=== PATIENT | female | born 2000 | race Caucasian/White ===

== ENCOUNTER → 2021-01-21 00:01 | Outpatient (BNVA) | payer BC, SELFPAY | PROVIDERS: Family Provider Nurse Practitioner Family; PCP Nurse Practitioner Family; Visit Provider Nurse Practitioner Family | DX: Z3A.34 34 weeks gestation of pregnancy (principal); O99.893 Other specified diseases and conditions complicating puerperium; M54.9 Dorsalgia, unspecified | CPT/HCPCS: 81003; 87086 ==

== ENCOUNTER 2022-04-22 07:46 | Emergency (ER) | payer MEDICAID, SELFPAY ==
--- NOTE | 2022-04-22 07:51 | XR_ITS ---
WS: [id number] Exam: XR chest 1V portable [id number] Date/Time of Exam: 04/22/2022 7:53 AM Reason For Exam: dyspnea/cough Comparison 07/11/2018. Findings: The lungs are clear and fully expanded. Costophrenic angles are sharp. No infiltrates. Bronchovascula r relief appears normal. Cardiac silhouette is unremarkable. Bony elements are intact. XR/XR chest 1V portable [id number] IMPRESSION: Unremarkable chest radiograph.
[2022-04-22 07:56] VITALS: BP 146/80; PULSE 122; RESP 36; TEMP 36.7; O2SAT 93; BMI 35.5
--- NOTE | 2022-04-22 08:18 | ED_ITS ---
HPI - SOB/Dyspnea General: Chief Complaint: Shortness of Breath/Dyspnea Stated Complaint: asthma attack Time Seen by Provider: 04/22/22 07:51 Source: patient Mode of arrival: ambulatory Limitations: no limitations History of Present Illness: HPI Narrative: 22-year-old female presents emergency room with complaint of shortness of breath and wheezing. 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 Last few days she had problems with her asthma increasing use of her rescue nebulizer. She had good results but states she could tell in the medicine the effectiveness seems to wear off she denies any fever. Minimal cough of clear sputum. No chest pain no abdominal pain. Patient reports she checked her O2 sat and it was in the upper 80s MD elicited complaint: shortness of breath and cough Pertinent past history: asthma Onset (ago): day(s) Timing: intermittent and progressively worsening Severity: moderate Associated symptoms: Reports cough; Deny abdominal pain, chest congestion, chest pain, diaphoresis, dizziness, extremity pain, fever(s), hemoptysis, lightheadedness, myalgias, nausea, orthopnea, palpitations, paresthesias, polydipsia, polyuria, rash, sense of impending doom, syncope or vomiting Treatment prior to arrival: bronchodilator Review of Systems Const: Denies: fever(s), chills, fatigue, malaise or diaphoresis ENMT: Denies: throat pain, ear or mastoid pain, nasal discharge or nasal congestion Card: Denies: chest pain, palpitations, lightheadedness, syncope or orthopnea Resp: Reports: dyspnea, productive cough and wheezing; Denies: hemoptysis or chest congestion GI: Denies: abdominal pain, nausea or vomiting : Denies: flank pain, difficulty voiding, dysuria, urinary frequency or urinary urgency Musc: Denies: extremity pain Skin/Breast: Denies: rash or pruritus Neuro: Denies: dizziness Endo: Denies: polyuria or polydipsia PFSH ED PFSH: Medical History Asthma Social History Smoking and tobacco status: never smoked Female Reproductive History: Date of last menstrual period: 04/22/22 Physical Exam Const: COMMON NORMALS: no acute distress GENERAL APPEARANCE: cooperative and comfortable ORIENTATION/CONSCIOUSNESS: Yes awake, Yes oriented to person, Yes oriented to place and Yes oriented to time HENMT: COMMON NORMALS: normocephalic, atraumatic and hearing grossly normal bilaterally HEAD & SCALP: normocephalic and atraumatic Neck/C-Spine: COMMON NORMALS: no JVD Resp: COMMON NORMALS: normal respiratory effort, No retractions and No use of accessory muscles AUSCULTATION: wheezes Cardio: COMMON NORMALS: no JVD, regular rate, regular rhythm and No murmurs present (Cardio) RATE: regular rate RHYTHM: regular rhythm GI: COMMON NORMALS: Soft to palpation and No hepatosplenomegaly present AUSCULTATION: Yes normoactive bowel sounds PALPATION: Yes Soft to palpation, No Tenderness to palpation present (GI), No Guarding due to palpation present (GI) and Yes No hepatosplenomegaly present Extremity: COMMON NORMALS: normal to inspection, capillary refill normal, no clubbing, cyanosis or edema, no calf tenderness and no pedal edema Neuro: SENSORIUM/ORIENTATION: Yes oriented to person, Yes oriented to place and Yes oriented to time Skin: COMMON NORMALS: no rashes or lesions noted GENERAL SKIN EXAM: no rashes or lesions noted Course Vital Signs: Vital signs: Vital Signs Temperature 98.0 F 04/22/22 07:56 Pulse Rate 126 H 04/22/22 08:26 Respiratory Rate 26 H 04/22/22 08:26 Blood Pressure 146/80 04/22/22 07:56 Pulse Oximetry 96 04/22/22 08:26 MDM - SOB/Dyspnea Medical Decision Making Marked improvement of the patient's breathing wheezing is nearly completely resolved she is feeling much better sats are good. Will discharge home prednisone taper refill her albuterol for nebulizers. Follow-up with primary care doctor in the next 1 to 2 days fizzing worsening symptoms return to the emergency room Medical Records I reviewed the patient's medical records. Lab Data I reviewed the patient's lab results. Labs/Radiology: Radiology Impressions Chest X-Ray 04/22/22 07:51 IMPRESSION: Unremarkable chest radiograph. Discharge Plan Discharge Patient Disposition: Home Clinical Impression: Asthma with exacerbation Condition: Stable Prescriptions: New prednisone 20 mg tablet 20 mg PO TID Qty: 15 0RF Rx Instructions: 1 p.o. 3 times daily x3 days, 1 p.o. twice daily x2 days, 1 p.o. daily x2 days albuterol sulfate 2.5 mg /3 mL (0.083 %) solution for nebulization 2.5 mg inhalation Q4H PRN (Reason: shortness of breath or wheezing) Qty: 90 0RF No Action budesonide-formoterol 160-4.5 mcg/actuation HFA aerosol inhaler inhalation 0RF prednisone 20 mg tablet PO 0RF azithromycin 250 mg tablet PO 0RF ipratropium-albuterol 0.5 mg-3 mg(2.5 mg base)/3 mL solution for nebulization 3 ml inhalation BID 0RF sertraline 25 mg tablet PO 0RF fluticasone propionate 50 mcg/actuation spray,suspension intranasal 0RF montelukast [Singulair] 10 mg tablet 10 mg PO DAILY 0RF albuterol sulfate [ProAir HFA] 90 mcg/actuation HFA aerosol inhaler 2 puff inhalation Q6H PRN (Reason: shortness of breath or wheezing) 30 Days Qty: 8.5 2RF Spiriva Respimat 1.25 mcg/actuation mist 2 puff inhalation DAILY Qty: 4 3RF Discharge Orders: Discharge ED (Routine); Ordered 04/22/22 Ordered By: Drew Matson Discharge Diet: Usual diet Discharge Activity: Increase activity as tolerated Patient Instructions: Asthma Exacerbation - Adult, How to Use a Nebulizer (ED), Opioid Safety Activity Restrictions/Additional Instructions: Up with your primary care doctor within the next 1 to 2 days Coding Level of Care Code ED [employer] for [employer] F[employer] Exam Comprehensive
[2022-04-22] MEDS: ipratropium-albuterol 3 mL Neb INHALATION (08:25)
[2022-04-22 08:26] VITALS: PULSE 126; RESP 26; O2SAT 96
[2022-04-22 08:29] VITALS: BP 148/68; PULSE 89; RESP 22; TEMP 36.6; O2SAT 96
[2022-04-22 09:40] VITALS: BP 136/59; PULSE 81; RESP 18; TEMP 36.8; O2SAT 96
== END 2022-04-22 09:41 | disposition home or self-care (01) ==
PROVIDERS: Emergency Provider Family Medicine
DX: J45.901 Unspecified asthma with (acute) exacerbation (principal)
CPT/HCPCS: 71045; 94640; 99283; J2930

== ENCOUNTER 2023-09-09 22:17 | Inpatient (IN) | payer OTHER, MEDICAID, SELFPAY ==
[2023-09-09] VITALS (8 sets, daily range): BP systolic 141; BP diastolic 84; PULSE 118–126; RESP 15–38; TEMP 36.8; O2SAT 91–94; BMI 24.4
--- NOTE | 2023-09-09 22:22 | XRR_ITS ---
PROCEDURE INFORMATION: Exam: XR Chest Exam date and time: 09/09/2023 10:41 PM Age: 23 years old Clinical indication: Dyspnea and wheezing; Additional info: Wheezing dyspnea TECHNIQUE: Imaging protocol: Radiologic exam of the chest. Views: 1 view. COMPARISON: CR XR chest 1V portable [id number] 04/22/2022 7:58 AM FINDINGS: Lungs: Unremarkable. No consolidation. Pleural spaces: Unremarkable. No pleural effusion. No pneumothorax. Heart/Mediastinum: Unremarkable. No cardiomegaly. Bones/joints: Unremarkable. XR/XR chest 1V portable [id number] IMPRESSION: No acute findings.
--- NOTE | 2023-09-09 22:23 | ED_ITS ---
HPI - SOB/Dyspnea General: Chief Complaint: Shortness of Breath/Dyspnea Stated Complaint: respiratory distress Time Seen by Provider: 09/09/23 22:23 History of Present Illness: HPI Narrative: Patient presents to the ER with complaints of shortness of breath secondary to wheezing and asthma attack. Patient is taken her nebulizers at home as directed and could not keep her saturation out of the 80s. patient was attempting to drive to the ED but got so short of breath that she stopped at the local EMS shack. When she arrived she was satting 80% on room air. At least 1 albuterol neb 2 DuoNebs 1 g magnesium give epi. Upon arriving to the ER patient was satting 88% on room air before the oxygen was hooked up. Patient denies any fevers chills coughs colds sore throats etc. Patient said it has been years since she got this bad. But this episode started about 4 PM today. Review of Systems 2 General: Reports: 10 or more systems reviewed and unremarkable except in HPI and below PFS ED PFSH: Medical History (Updated 09/10/23 @ 00:49 by Rafa Castro DO) Asthma Psychiatric care Social History Smoking and tobacco/nicotine status: never used tobacco/nicotine Physical Exam Const: COMMON NORMALS: no acute distress, average body habitus, patient oriented x3, no limitations, healthy appearing, alert and well nourished HENMT: COMMON NORMALS: normocephalic, atraumatic, hearing grossly normal bilaterally, external ears normal, Normal external nose present, moist oral mucous membranes and oropharynx normal HEAD & SCALP: normocephalic and atraumatic NOSE: Normal external nose present EXTERNAL EAR: Yes external ears normal Neck/C-Spine: COMMON NORMALS: no JVD Chest: COMMONS NORMALS: normal inspection of the chest and normal palpation of entire chest wall Resp: COMMON NORMALS: normal respiratory effort, No retractions and No use of accessory muscles; negative for clear to auscultation bilaterally ( Diffuse wheezing) AUSCULTATION: not clear to auscultation bilaterally ( Diffuse wheezing) Cardio: COMMON NORMALS: no JVD, regular rhythm, S1 normal heart sound present, S2 normal heart sound present, No gallops present (Cardio), No clicks present (Cardio), No murmurs present (Cardio) and No rub (Cardio); negative for regular rate ( tachycardic) RATE: abnormal rate ( tachycardic) RHYTHM: regular rhythm HEART SOUNDS: S1 normal heart sound present and S2 normal heart sound present GI: COMMON NORMALS: Normal to inspection, nondistended, normoactive bowel sounds present, Soft to palpation, non-tender, No hepatosplenomegaly present and no masses PALPATION: Yes Soft to palpation and Yes No hepatosplenomegaly present Neuro: COMMON NORMALS: patient oriented x3 SENSORIUM/ORIENTATION: Yes alert Course Vital Signs: Vital signs: Vital Signs Temperature 98.3 F 09/09/23 22:46 Pulse Rate 112 H 09/10/23 00:30 Respiratory Rate 22 H 09/10/23 00:30 Blood Pressure 124/76 09/10/23 00:30 Pulse Oximetry 92 09/10/23 00:30 Oxygen Delivery Me thod Nasal Cannula 09/10/23 00:30 Oxygen Flow Rate 5 09/10/23 00:30 MDM - SOB/Dyspnea Medical Decision Making patient presents to the ER with complaints of a severe asthma attack. Patient did not respond significantly to the treatment that the EMS gave her we gave her 2 Xopenex and neb treatments and 125 mg Solu-Medrol. Patient still required approximately 4 to 5 L of oxygen to keep her saturations upwards in the low 90s. Dr. Chapa was consulted who agreed to place patient observation in the ICU since she required oxygen for further evaluation and treatment. We will get a respiratory panel and an ABG in the meantime. Differential Diagnosis Likely asthma with exacerbation; Unlikely acute exacerbation of chronic obstructive airways disease, congestive heart failure, community acquired pneumonia or pulmonary embolism Medical Records I reviewed the patient's medical records. Lab Data I reviewed the patient's lab results. 09/09/23 23:22 09/09/23 22:35 Labs/Radiology: Radiology Impressions Chest X-Ray 09/09/23 22:22 IMPRESSION: No acute findings. Laboratory Results WBC 30.93 10^3/uL (3.29-11.43) H* 09/09/23 23:22 RBC 4.47 10^6/uL (3.85-5.65) 09/09/23 23:22 Hgb 13.60 g/dL (11.27-16.99) 09/09/23 23:22 Hct 41.6 % (36-47) 09/09/23 23: MCV 93.1 fl (85-98) 09/09/23 23:22 MCH 30.4 pg (27-33) 09/09/23 23: MCHC 32.7 g/dL (30-55) 09/09/23 23: RDW 12.6 % (12.1-15.1) 09/09/23 23: Plt Count 326 10^3/cmm (157-399) 09/09/23 23:22 MPV 9.1 fL (7.4-10.4) 09/09/23 23: Neut % (Auto) 93.3 % 09/09/23 23: Lymph % (Auto) 3.1 % 09/09/23 23: [place] % (Auto) 1.2 % 09/09/23 23: Eos % (Auto) 1.5 % 09/09/23 23: Baso % (Auto) 0.3 % 09/09/23 23: Neut # (Auto) 28.87 10^3/uL (1.8-7.7) H 09/09/23 23: Lymph # (Auto) 1.0 10^3/uL (0.8-4.8) 09/09/23 23:22 [place] # (Auto) 0.4 10^3/uL (0.2-0.9) 09/09/23 23:22 Eos # (Auto) 0.5 10^3/uL (0.0-0.8) 09/09/23 23: Baso # (Auto) 0.1 10^3/uL (0.0-0.1) 09/09/23 23:22 Nucleated RBC % (auto) 0 % 09/09/23 23: Nucleated RBCs # 0.0 /100WBC 09/09/23 23:22 Sodium 140 mmol/L (136-145) 09/09/23 22:35 Potassium 3.5 mmol/L (3.5-5.1) 09/09/23 22:35 Chloride 101 mmol/L (98-107) 09/09/23 22:35 Carbon Dioxide 24 mmol/L (22-29) 09/09/23 22:35 Anion Gap 18.5 (5-19) 09/09/23 22:35 BUN 7 mg/dL (6-20) 09/09/23 22:35 Creatinine 0.8 mg/dL (0.5-0.9) 09/09/23 22:35 GFR Calculation 88.1 mL/min (90-130) L 09/09/23 22:35 Glucose 167 mg/dL (65-115) H 09/09/23 22:35 Calculated Osmolality 292 mOsm/kg (285-295) 09/09/23 22:35 Calcium 8.7 mg/dL (8.5-10.5) 09/09/23 22:35 Total Bilirubin 0.6 mg/dL (0.15-1.2) 09/09/23 22:35 AST 11 U/L (0-32) 09/09/23 22:35 ALT 7 U/L (0-33) 09/09/23 22:35 Alkaline Phosphatase 89 U/L (35-105) 09/09/23 22:35 Total Protein 7.0 g/dL (6.6-8.7) 09/09/23 22:35 Albumin 4.4 g/dL (3.5-5.2) 09/09/23 22:35 Globulin 2.6 g/dL (1.3-4.6) 09/09/23 22:35 All radiology interpretation(s) finalized by discharge Discharge Plan Discharge Patient Disposition: Placed in Observation Clinical Impression: Asthma Qualifiers: Asthma severity: severe Asthma persistence: unspecified Asthma complication type: with acute exacerbation Qualified Code(s): J45.901 - Unspecified asthma with (acute) exacerbation Leukocytosis Qualifiers: Leukocytosis type: unspecified Qualified Code(s): D72.829 - Elevated white blood cell count, unspecified Coding Level of Care Code ED [employer] for Carolina Loyd
[2023-09-09] MEDS: methylPREDNISolone sod succ 125 MG in water for injection-sterile 2 ML 24 MG IVP (22:33)
[2023-09-09 22:56] LABS: Alanine Aminotransferase 7 U/L (0-33); Albumin Level 4.4 g/dL (3.5-5.2); Alkaline Phosphatase 89 U/L (35-105); Aspartate Amino Transferase 11 U/L (0-32); Blood Urea Nitrogen 7 mg/dL (6-20); Calcium 8.7 mg/dL (8.5-10.5); Carbon Dioxide 24 mmol/L (22-29); Chloride 101 mmol/L (98-107); Globulin 2.6 g/dL (1.3-4.6); Glomerular Filtration Rate 88.1 mL/min (90-130); Glucose 167 mg/dL (65-115); Osmolality Calculated 292 mOsm/kg (285-295); Sodium 140 mmol/L (136-145); Total Bilirubin 0.6 mg/dL (0.15-1.2)
[2023-09-09 22:58] LABS: Anion Gap 18.5 (5-19); Potassium 3.5 mmol/L (3.5-5.1)
[2023-09-09] MEDS: levalbuterol 1.25 mg/3 mL Neb INHALATION ×2 (23:06→23:55)
[2023-09-09 23:28] LABS: Basophils # 0.1 10^3/uL (0.0-0.1); Basophils % 0.3 %; Eosinophils # 0.5 10^3/uL (0.0-0.8); Eosinophils % 1.5 %; Hematocrit 41.6 % (36-47); Lymphocytes % 3.1 %; Mean Corpuscular HGB Conc 32.7 g/dL (30-55); Mean Corpuscular Hemoglobin 30.4 pg (27-33); Mean Corpuscular Volume 93.1 fl (85-98); Mean Platelet Volume 9.1 fL (7.4-10.4); Monocytes # 0.4 10^3/uL (0.2-0.9); Monocytes % 1.2 %; Neutrophils # 28.87 10^3/uL (1.8-7.7); Neutrophils % 93.3 %; Nucleated Red Blood Cells % 0 %; Platelet Count 326 10^3/cmm (157-399); Red Blood Count 4.47 10^6/uL (3.85-5.65); Red Cell Distribution Width 12.6 % (12.1-15.1)
[2023-09-09 23:34] LABS: White Blood Count 30.93 10^3/uL (3.29-11.43)
[2023-09-10] VITALS (47 sets, daily range): BP systolic 104–154; BP diastolic 47–84; PULSE 89–152; RESP 8–35; TEMP 36.6–37.2; O2SAT 90–98
[2023-09-10 01:10] LABS: ABG PCO2 36.8 mmHg (35-45); ABG PH Result 7.43 (7.35-7.45); Alveolar-Arterial Oxygen Gradi 5.7 mmHg (5-10); Arterial Blood Gas Hematocrit 40.5 % (37-47); Base Excess ABG 0.1 mmol/L (-2.0-2.0); Blood Gas Allen Test Pos; Blood Gas Sample Site Radial, right; Blood Gas Sample Type Arterial; HCO3 ABG 24.2 mmol/L (22-26); HGB O2 Sat 91.8 % (95-100); Ionized Calcium Level - ABG 1.2 mmol/L (1.1-1.4); Methemoglobin 0.1 % (0.4-1.5); Oxygen Device NC; Oxygen Saturation ABG 92.8; PO2 ABG 60.1 mmHg (80.0-100.0); Potassium Level - ABG 3.6 mmol/L (3.5-5.0); Total Hemoglobin 13.2 g/dL (12-16)
--- NOTE | 2023-09-10 02:13 | P.HP_ITS ---
Providers/Chief Complaint Admitting Physician: Kaiden Chapa Primary Care Provider: Renee Daily NP Chief Complaint: respiratory distress History of Present Illness Francisco J Hi is a 23 year old female with history of asthma was brought for ablation to emergency department due to dyspnea, wheezing, despite using her inhalers as well as nebulizers at home. On arrival of EMS oxygen saturation was 78%. Also had an episode of vomiting after being picked up by EMS which may have been associated with a bout of cough. On the way to ER she received DuoNeb, racemic epinephrine, 1 g magnesium, in ER additionally received a dose of Solu-Medrol, breathing treatment. She is noted to have leukocytosis 30.9. She is not coughing up any phlegm. Chest x-ray in ER without consolidation. Has not had any recurrent vomiting apart from 1 episode. No diarrhea. Has not noticed any other unusual symptoms. Review of Systems Const: Denies: fever(s), chills, body aches or malaise ENMT: Denies: throat pain Card: Denies: chest pain, edema, pre-syncope or dyspnea on exertion Resp: Reports: dyspnea, non-productive cough and wheezing; Denies: productive cough, change in phlegm color or hemoptysis GI: Reports: vomiting (x1 after getting in the EMS); Denies: abdominal pain, nausea, diarrhea, constipation, hematochezia or melena : Denies: flank pain, urinary frequency or hematuria Musc: Denies: back pain, joint swelling or joint redness Skin/Breast: Denies: rash or new lesions Neuro: Denies: headache(s), numbness in extremities, weakness in extremities, dizziness, confusion or seizure-like activity Medications/Allergies Home Medications Medication Instructions Recorded Confirmed Last Taken Type budesonide-formoterol HFA 160 g inhalation 08/06/21 04/28/23 Unknown History mcg-4.5 mcg/actuation aerosol inhaler ipratropium 0.5 mg-albuterol 3 mg 3 ml inhalation BID 08/06/21 04/28/23 Unknown History (2.5 mg base)/3 mL nebulization soln albuterol sulfate 90 mcg/actuation 2 puff inhalation Q6H PRN 11/06/21 04/28/23 Unknown Rx aerosol inhaler (ProAir HFA) shortness of breath or wheezing 30 days #8.5 grams tiotropium bromide 1.25 2 puff inhalation DAILY #4 grams 11/06/21 04/28/23 Unknown Rx mcg/actuation mist for inhalation (Spiriva Respimat) albuterol sulfate 2.5 mg/3 mL 2.5 mg (3 mL) inhalation Q4H PRN 04/22/22 04/28/23 Unknown Rx (0.083 %) solution for nebulization shortness of breath or wheezing #90 mL propranolol 20 mg tablet 20 mg PO BID PRN anxiety #60 tabs 04/28/23 04/28/23 Unknown Rx sertraline 100 mg tablet 100 mg PO DAILY #30 tabs 04/28/23 04/28/23 Unknown Rx trazodone 50 mg tablet 100 mg PO .HS PRN insomnia #60 tabs 04/28/23 04/28/23 Unknown Rx Allergies Allergy/AdvReac Type Severity Reaction Status Date / Time Penicillins Allergy Intermediate rash Verified 04/28/23 13:28 morphine AdvReac Intermediate Muscle Uncoded 04/28/23 13:28 spasms PFSH Acute PFSH: Medical History Asthma Psychiatric care Social History Smoking and tobacco/nicotine status: never used tobacco/nicotine Vitals/I&O/Wt Last Vital Signs Temp 98.3 F 09/09/23 22:46 Pulse 107 H 09/10/23 01:27 Resp 30 H 09/10/23 01:27 BP 154/71 09/10/23 01:27 Pulse Ox 94 09/10/23 01:27 O2 Del Method Nasal Cannula 09/10/23 01:28 O2 Flow Rate 5 09/10/23 00:30 09/09/23 09/09/23 09/10/23 14:59 22:59 06:59 Intake Total 2 / 2 Balance 2 / 2 Weight last 48 hrs Weight 70.76 kg Physical Exam Const: COMMON NORMALS: patient oriented x3 and alert GENERAL APPEARANCE: cooperative ORIENTATION/CONSCIOUSNESS: Yes awake HENMT: COMMON NORMALS: oropharynx normal Neck/C-Spine: COMMON NORMALS: no JVD Resp: COMMON NORMALS: normal respiratory effort and clear to auscultation bilaterally AUSCULTATION: wheezes and diminished lung sounds Cardio: COMMON NORMALS: no JVD, regular rhythm, S1 normal heart sound present, S2 normal heart sound present and No murmurs present (Cardio) RHYTHM: regular rhythm HEART SOUNDS: S1 normal heart sound present and S2 normal heart sound present GI: COMMON NORMALS: Normal to inspection, nondistended, normoactive bowel sounds present, Soft to palpation and non-tender PALPATION: Yes Soft to palpation Extremity: COMMON NORMALS: no joint enlargement and no pedal edema Neuro: COMMON NORMALS: patient oriented x3 and moves all extremities SENSORIUM/ORIENTATION: Yes alert Skin: COMMON NORMALS: no rashes or lesions noted GENERAL SKIN EXAM: no rashes or lesions noted Data 09/09/23 23:22 09/09/23 22:35 A&P Assessment and plan (1) Respiratory failure with hypoxia: Dyspnea, tachypnea, wheezing, reduced air entry, oxygen saturation down to 78%. Not normally on oxygen on 5 L nasal cannula in ER to maintain saturation in the 90s. Severe exacerbation of asthma appears to be secondary to rhinovirus infection. Reviewed vital signs, reviewed previously administered treatment. Reviewed ER documentation, discussed with ER physician. Reviewed CBC, ABG, CMP. Respiratory viral panel had been requested and returns positive for rhino/enterovirus. Chest x-ray reviewed, discussed with her no consolidation noted. Given respiratory failure, new oxygen requirement admitted to ICU for initial treatment and monitoring. Continue IV steroids. Scheduled and as needed nebs. Oxygen support, wean down as tolerating. For now we discussed with her n.p.o., sips and chips. Discussed consideration/role of MV support. Maintain isolation precautions. DVT prophylaxis. PPI. (2) Asthma exacerbation: Severe asthma exacerbation with dyspnea, tachypnea, cough, diminished air entry, wheezing, hypoxic respiratory failure. As above. Secondary to rhinovirus infection. (3) Rhinovirus infection: Maintain isolation precautions. Antitussives as needed. Antiemetic as needed. (4) Leukocytosis: We discussed elevated WBC, up to 30.93, neutrophils noted elevated 20.87. However, no obvious source of bacterial infection at current time. No consolidation on chest x-ray to suggest pneumonia. She did have an episode of vomiting. Some possibility of reactive leukocytosis. She also has used her steroid inhaler at home, possibly some contribution to demargination. Additionally positive for rhinovirus. At current time no other symptoms suggestive of bacterial infection. We discussed consideration of antibiotic therapy empirically, but decided to hold off for now unless condition changes. Reassessment CBC requested. Qualifiers: Leukocytosis type: unspecified Qualified Code(s): D72.829 - Elevated white blood cell count, unspecified Plan Penicillin allergy: Reports rash in childhood. Consider follow-up with primary provider for allergy testing. Attestations Medical Necessity Statement*: Admission of over 2 midnights anticipated for assessment management of respiratory failure with severe exacerbation of asthma secondary to rhinovirus infection. Coding Level of Care Code Critical Care >/= 30 minutes Critical care time (in minutes): 30 The high probability of a clinically significant, sudden or life threatening deterioration, as referenced in this documentation, required my full and direct attention, intervention and personal management. The critical care time shown is in addition to time spent performing any reported separately billable procedures and includes the following: [x] Data and vital sign review and interpretation [x ] Patient assessment, examination and intervention [x] Medication orders and management [x] Patient/Family updates as able [x] Care Coordination and Documentation. Diagnoses Respiratory failure with hypoxia J96.91 Asthma exacerbation J45.901 Rhinovirus infection B34.8 Leukocytosis D72.829 Leukocytosis type: unspecified
[2023-09-10] MEDS: pantoprazole 40 mg SDV IVP (02:22)
[2023-09-10] MEDS: heparin 5,000 unit/mL INJ 1 mL 5000 UNIT SUBCUT ×2 (02:26→15:17)
[2023-09-10] MEDS: magnesium sulfate premix 1 GM/100 ML PIGGYBACK IV (02:26)
[2023-09-10 02:37] LABS: Adenovirus Not Detected (NOT DETECT); Chlamydia Pneumoniae Not Detected (NOT DETECT); Coronavirus 229E,HKU1,NL63,OC4 Not Detected (NOT DETECT); Human Metapneumovirus Not Detected (NOT DETECT); Human Rhinovirus/Enterovirus Detected (NOT DETECT); Influenza A Not Detected (NOT DETECT); Influenza A H1 Not Detected (NOT DETECT); Influenza A H1-2009 Not Detected (NOT DETECT); Influenza A H3 Not Detected (NOT DETECT); Influenza B Not Detected (NOT DETECT); Mycoplasma Pneumoniae Not Detected (NOT DETECT); Parainfluenza Virus Type 1 Not Detected (NOT DETECT); Parainfluenza Virus Type 2 Not Detected (NOT DETECT); Parainfluenza Virus Type 3 Not Detected (NOT DETECT); Parainfluenza Virus Type 4 Not Detected (NOT DETECT); Respiratory Syncytial Virus A Not Detected (NOT DETECT); Respiratory Syncytial Virus B Not Detected (NOT DETECT); SARS-COV-2 Not Detected (NOT DETECT)
[2023-09-10] MEDS: ipratropium-albuterol 3 mL Neb INHALATION ×4 (03:10→15:43)
[2023-09-10] MEDS: methylPREDNISolone sod succ 60 MG in water for injection-sterile 0.96 ML 11.52 MG IVP ×4 (03:36→21:18)
[2023-09-10 09:47] LABS: Basophils % 0.1 %; Lymphocytes # 0.9 10^3/uL (0.8-4.8); Lymphocytes % 5.5 %; Mean Corpuscular HGB Conc 32.8 g/dL (30-55); Mean Corpuscular Hemoglobin 30.5 pg (27-33); Mean Corpuscular Volume 92.9 fl (85-98); Mean Platelet Volume 9.1 fL (7.4-10.4); Monocytes # 0.1 10^3/uL (0.2-0.9); Monocytes % 0.5 %; Neutrophils # 14.29 10^3/uL (1.8-7.7); Neutrophils % 93.3 %; Nucleated Red Blood Cells % 0 %; Platelet Count 367 10^3/cmm (157-399); Red Blood Count 4.63 10^6/uL (3.85-5.65); Red Cell Distribution Width 12.7 % (12.1-15.1); White Blood Count 15.32 10^3/uL (3.29-11.43)
[2023-09-10 10:07] LABS: HCG, Serum Qual Negative (Negative)
[2023-09-10 10:11] LABS: C Reactive Protein 33.6 mg/L (0.0-4.9)
[2023-09-10 10:16] LABS: Estmated Average Glucose 97
[2023-09-10 10:17] LABS: Procalcitonin 0.18 ng/mL (0-0.5)
[2023-09-10 10:24] LABS: Slide Review Slide Review Perform
[2023-09-10 13:39] LABS: Amphetamines Screen Urine Negative (Negative); Barbiturates Screen Urine Negative (Negative); Benzodiazepines Screen Urine Negative (Negative); Cocaine Screen Urine Positive (Negative); Opiate Screen Urine Negative (Negative); PCP Screen Urine Negative (Negative); THC Screen Urine Negative (Negative)
[2023-09-10 13:57] LABS: Add Urine Microscopic? YES; Bilirubin Urine Neg (Negative); Blood Urine 2+ (Negative); Glucose Urine UA Norm (Normal); Ketones Urine 1+ (Negative); Leukocyte Esterase Urine Trace (Negative); Nitrate Urine Negative (Negative); Protein Urine Neg (Negative); Specific Gravity, Urine 1.005 (1.005-1.030); Urine Appearance SL Hazy (CLEAR); Urine Color Yellow (Yellow); Urobilinogen Urine Norm (Negative); pH Urine 6 (5-7)
[2023-09-10 14:05] LABS: Bacteria Urine TRACE /hpf; RBC Urine 0-4 /hpf (0-2); Squamous Epithelial Cell Urine 15-25 /hpf (0-5); Transitional Epi Cells Urine RARE /hpf; WBC Urine 15-25 /hpf (0-5)
[2023-09-10 14:06] LABS: Add Urine Culture? No
--- NOTE | 2023-09-10 15:18 | PM.PN ---
Subjective Subjective: Patient was seen this morning, she remains tachycardic heart rates in the 110s, sinus, respiratory rate 15-20, she is alert awake, following all commands, she is able to speak a few sentences without feeling short of breath, no nasal flaring, no intercostal retraction she feels a lot better, she is wondering if she can have a diet, no abdominal pain, no flank pain, no dysuria, nonproductive cough, she tells that she has had severe asthma exacerbations in the past, this is probably the most severe, Vitals/I&O/Wt Last Vital Signs Temp 97.9 F 09/10/23 12:00 Pulse 120 H 09/10/23 13:00 Resp 27 H 09/10/23 13:00 BP 113/58 09/10/23 13:00 Pulse Ox 96 09/10/23 13:00 O2 Del Method Nasal Cannula 09/10/23 12:06 O2 Flow Rate 2 09/10/23 12:06 09/10/23 09/10/23 09/10/23 06:59 14:59 22:59 Intake Total 102.96 / 102.96 640.96 / 640.96 Output Total 400 / 400 Balance 102.96 / 102.96 240.96 / 240.96 Weight last 48 hrs Weight 71.214 kg Weight 70.76 kg Physical Exam Const: COMMON NORMALS: no acute distress and patient oriented x3 Resp: COMMON NORMALS: normal respiratory effort, No retractions and No use of accessory muscles OTHER: Scattered wheezing Cardio: COMMON NORMALS: regular rate, regular rhythm, S1 normal heart sound present and S2 normal heart sound present RATE: regular rate RHYTHM: regular rhythm HEART SOUNDS: S1 normal heart sound present and S2 normal heart sound present GI: COMMON NORMALS: Normal to inspection, nondistended, normoactive bowel sounds present and non-tender Extremity: COMMON NORMALS: no pedal edema Neuro: COMMON NORMALS: patient oriented x3 Psych: COMMON NORMALS: mental status grossly normal Data 09/10/23 09:30 09/09/23 22:35 Micro: Microbiology 09/10/23 09:15 Gram Stain - Final Sputum - Expectorated Sputum Sputum Culture - Preliminary 09/10/23 09:30 Blood Culture - Preliminary Blood SPECIMEN COLLECTED 09/10/23 09:34 Blood Culture - Preliminary Blood SPECIMEN COLLECTED A&P Assessment and plan (1) Respiratory failure with hypoxia: Secondary to asthma exacerbation, ? Continue Solu-Medrol 60 mg IV push every 6 hours, ? IV fluids 75 cc an hour, ? Monitor respiratory status closely, ? Continue DuoNeb every 4 hours (2) Asthma exacerbation: (3) Rhinovirus infection: Maintain isolation precautions. Antitussives as needed. Antiemetic as needed. (4) Leukocytosis: ? UA, Pro-Isrrael, CRP, monitor for fevers Qualifiers: Leukocytosis type: unspecified Qualified Code(s): D72.829 - Elevated white blood cell count, unspecified Plan Penicillin allergy: Reports rash in childhood. Consider follow-up with primary provider for allergy testing. Attestations Medical Necessity Statement*: Patient requires hospitalization for asthma exacerbation requiring ICU monitoring, continue DuoNeb, steroids, currently hypoxic on 2 L Diagnoses Respiratory failure with hypoxia J96.91 Asthma exacerbation J45.901 Rhinovirus infection B34.8 Leukocytosis D72.829 Leukocytosis type: unspecified
[2023-09-10] MEDS: sodium chloride 0.9% 1,000 ML 75 ML IV (17:46)
[2023-09-10] MEDS: ipratropium 0.5 mg/2.5 mL Neb INHALATION (20:26)
[2023-09-10] MEDS: levalbuterol 0.63 mg/3 mL Neb INHALATION (20:26)
--- NOTE | 2023-09-10 23:16 | ECG_ITS ---
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 Measurements Intervals [place] Rate: 125 P: 82 CT: 136 QRS: 82 QRSD: 83 T: 58 QT: 327 QTc: 473 Interpretive Statements SINUS TACHYCARDIA POSSIBLE RIGHT VENTRICULAR CONDUCTION DELAY [RSR (QR) IN V1/V2] ABNORMAL RHYTHM ECG Compared to ECG 07/11/2018 12:41:35 T-wave abnormality no longer present Electronically Signed On 09-11-2023 20:51:49 [employer]SEMBLER [employer]KE by Harsha Peralta M.D. [email or web address]
[2023-09-11] VITALS (20 sets, daily range): BP systolic 84–132; BP diastolic 51–72; PULSE 87–122; RESP 14–27; TEMP 36.7–37.1; O2SAT 92–96
[2023-09-11] MEDS: levalbuterol 0.63 mg/3 mL Neb INHALATION ×3 (00:16→08:12)
[2023-09-11] MEDS: ipratropium 0.5 mg/2.5 mL Neb INHALATION ×3 (00:16→08:12)
[2023-09-11] MEDS: pantoprazole 40 mg SDV IVP (01:30)
[2023-09-11] MEDS: heparin 5,000 unit/mL INJ 1 mL 5000 UNIT SUBCUT (01:30)
[2023-09-11] MEDS: methylPREDNISolone sod succ 60 MG in water for injection-sterile 0.96 ML 11.52 MG IVP ×2 (03:50→09:03)
--- NOTE | 2023-09-11 05:15 | PC.NURSE ---
Assumed care of patient, report received from BINDU Hoff.
[2023-09-11 05:58] LABS: Basophils % 0.2 %; Hematocrit 37.7 % (36-47); Mean Corpuscular HGB Conc 32.6 g/dL (30-55); Mean Corpuscular Hemoglobin 30.4 pg (27-33); Mean Corpuscular Volume 93.1 fl (85-98); Mean Platelet Volume 9.3 fL (7.4-10.4); Monocytes # 0.4 10^3/uL (0.2-0.9); Monocytes % 1.5 %; Neutrophils # 23.85 10^3/uL (1.8-7.7); Neutrophils % 93.7 %; Nucleated Red Blood Cells % 0 %; Platelet Count 384 10^3/cmm (157-399); Red Blood Count 4.05 10^6/uL (3.85-5.65); Red Cell Distribution Width 13.2 % (12.1-15.1); White Blood Count 25.45 10^3/uL (3.29-11.43)
[2023-09-11 06:17] LABS: Anion Gap 15.6 (5-19); Blood Urea Nitrogen 10 mg/dL (6-20); Calcium 8.7 mg/dL (8.5-10.5); Carbon Dioxide 22 mmol/L (22-29); Chloride 107 mmol/L (98-107); Glomerular Filtration Rate 151.6 mL/min (90-130); Glucose 151 mg/dL (65-115); Osmolality Calculated 292 mOsm/kg (285-295); Potassium 4.6 mmol/L (3.5-5.1); Sodium 140 mmol/L (136-145)
[2023-09-11] MEDS: sodium chloride 0.9% 1,000 ML 75 ML IV (07:51)
[2023-09-11] MEDS: sulfamethoxazole-trimeth DS 160-800 mg Tablet 1 TAB PO (09:04)
--- NOTE | 2023-09-11 11:55 | PM.DCS ---
Discharge Providers Date of Admission: 09/10/23 03:15 Date of Discharge: September 11, 2023 Attending Provider at Admission: Kaiden Chapa Attending Provider at Discharge: Brad Woo MD Primary Care Provider: Renee Daily NP Diagnoses at Discharge Discharge Diagnosis (1) Respiratory failure with hypoxia: Status: Acute (2) Asthma exacerbation: Status: Acute (3) Rhinovirus infection: Status: Acute (4) Leukocytosis: Status: Acute Qualifiers: Leukocytosis type: unspecified Qualified Code(s): D72.829 - Elevated white blood cell count, unspecified Reason for Visit Reason for Visit: respiratory distress Hospital Course Hospital Course Francisco J Hi is a 23 year old female with history of asthma was brought for ablation to emergency department due to dyspnea, wheezing, despite using her inhalers as well as nebulizers at home.? On arrival of EMS oxygen saturation was 78%.? Also had an episode of vomiting after being picked up by EMS which may have been associated with a bout of cough.? On the way to ER she received DuoNeb, racemic epinephrine, 1 g magnesium, in ER additionally received a dose of Solu-Medrol, breathing treatment. She is noted to have leukocytosis 30.9.? She is not coughing up any phlegm.? Chest x-ray in ER without consolidation.? Has not had any recurrent vomiting apart from 1 episode.? No diarrhea.? Has not noticed any other unusual symptoms Patient was admitted to [facility] for acute asthma exacerbation with hypoxia, requiring steroids, IV fluids, inhaler therapy, clinically monitoring, overall patient clinically improved, to room air, ambulating without significant symptomatology, wheezing resolved, patient will be discharged on a prednisone taper, with inhaler therapy, with a close follow-up with pulmonary as outpatient, Patient's UA was positive for UTI, discharged with Bactrim therapy, Patient was positive for cocaine, patient was advised to abstain from drug use, she denies IV drug use, Patient with persistent leukocytosis during hospitalization, likely component of asthma exacerbation, steroid use, continue to monitor if any fevers, chills, worsening cough go to the emergency room Physical Exam Const: COMMON NORMALS: no acute distress and patient oriented x3 Resp: COMMON NORMALS: normal respiratory effort, No retractions, No use of accessory muscles and clear to auscultation bilaterally AUSCULTATION: clear to auscultation bilaterally Cardio: COMMON NORMALS: regular rate, regular rhythm, S1 normal heart sound present and S2 normal heart sound present RATE: regular rate RHYTHM: regular rhythm HEART SOUNDS: S1 normal heart sound present and S2 normal heart sound present GI: COMMON NORMALS: Normal to inspection, nondistended, normoactive bowel sounds present and non-tender Extremity: COMMON NORMALS: no pedal edema Neuro: COMMON NORMALS: patient oriented x3 Psych: COMMON NORMALS: mental status grossly normal Discharge Data Studies Completed and Pending Completed Studies During Hospitalization Category Date Time Status XR chest 1V portable [id number] Stat Exams 09/09/23 22:22 Completed Pending at discharge Category Date Time Status Basic Metabolic Panel AM LABS Lab 09/12/23 04:00 Ordered Basic Metabolic Panel AM LABS Lab 09/13/23 04:00 Ordered Blood Culture Stat Lab 09/10/23 09:30 Results Complete Blood Count w/Auto AM LABS Lab 09/12/23 04:00 Ordered Complete Blood Count w/Auto AM LABS Lab 09/13/23 04:00 Ordered Sputum Culture and Gram Stain Stat Lab 09/10/23 09:15 Results Urine Culture Stat Lab 09/10/23 13:20 Received Radiology Impressions Chest X-Ray 09/09/23 22:22 IMPRESSION: No acute findings. Laboratory Results WBC 25.45 10^3/uL (3.29-11.43) H 09/11/23 05:35 RBC 4.05 10^6/uL (3.85-5.65) 09/11/23 05:35 Hgb 12.30 g/dL (11.27-16.99) 09/11/23 05:35 Hct 37.7 % (36-47) 09/11/23 05:35 MCV 93.1 fl (85-98) 09/11/23 05:35 MCH 30.4 pg (27-33) 09/11/23 05:35 MCHC 32.6 g/dL (30-55) 09/11/23 05:35 RDW 13.2 % (12.1-15.1) 09/11/23 05:35 Plt Count 384 10^3/cmm (157-399) 09/11/23 05:35 MPV 9.3 fL (7.4-10.4) 09/11/23 05:35 Neut % (Auto) 93.7 % 09/11/23 05:35 Lymph % (Auto) 4.0 % 09/11/23 05:35 [place] % (Auto) 1.5 % 09/11/23 05:35 Eos % (Auto) 0.0 % 09/11/23 05:35 Baso % (Auto) 0.2 % 09/11/23 05:35 Neut # (Auto) 23.85 10^3/uL (1.8-7.7) H 09/11/23 05:35 Lymph # (Auto) 1.0 10^3/uL (0.8-4.8) 09/11/23 05:35 [place] # (Auto) 0.4 10^3/uL (0.2-0.9) 09/11/23 05:35 Eos # (Auto) 0.0 10^3/uL (0.0-0.8) 09/11/23 05:35 Baso # (Auto) 0.0 10^3/uL (0.0-0.1) 09/11/23 05:35 Nucleated RBC % (auto) 0 % 09/11/23 05:35 Nucleated RBCs # 0.0 /100WBC 09/11/23 05:35 Specimen Type Arterial 09/10/23 01:05 Sample Site Radial, right 09/10/23 01:05 ABG pH 7.43 (7.35-7.45) 09/10/23 01:05 ABG pCO2 36.8 mmHg (35-45) 09/10/23 01:05 ABG pO2 60.1 mmHg (80.0-100.0) L 09/10/23 01:05 ABG HCO3 24.2 mmol/L (22-26) 09/10/23 01:05 ABG O2 Saturation 92.8 09/10/23 01:05 ABG Base Excess 0.1 mmol/L (-2.0-2.0) 09/10/23 01:05 [place] Test Pos 09/10/23 01:05 A-a O2 Gradient 5.7 mmHg (5-10) 09/10/23 01:05 Hematocrit 40.5 % (37-47) 09/10/23 01:05 Hgb O2 Saturation 91.8 % (95-100) L 09/10/23 01:05 Carboxyhemoglobin 1.0 %THgb (0.4-20.1) 09/10/23 01:05 Methemoglobin 0.1 % (0.4-1.5) L 09/10/23 01:05 Total Hemoglobin 13.2 g/dL (12-16) 09/10/23 01:05 Sodium 140.0 mmol/L (131-143) 09/10/23 01:05 Potassium 3.6 mmol/L (3.5-5.0) 09/10/23 01:05 Glucose 123.0 mg/dL (70-115) H 09/10/23 01:05 Ionized Calcium 1.2 mmol/L (1.1-1.4) 09/10/23 01:05 O2 Delivery Device Nc 09/10/23 01:05 O2 Liters/Min 4.0 % 09/10/23 01:05 Brick Cleaner ID [email or web address] 09/10/23 01:05 Sodium 140 mmol/L (136-145) 09/11/23 05:35 Potassium 4.6 mmol/L (3.5-5.1) 09/11/23 05:35 Chloride 107 mmol/L (98-107) 09/11/23 05:35 Carbon Dioxide 22 mmol/L (22-29) 09/11/23 05:35 Anion Gap 15.6 (5-19) 09/11/23 05:35 BUN 10 mg/dL (6-20) 09/11/23 05:35 Creatinine 0.5 mg/dL (0.5-0.9) 09/11/23 05:35 GFR Calculation 151.6 mL/min (90-130) H 09/11/23 05:35 Glucose 151 mg/dL (65-115) H 09/11/23 05:35 Estimat Average Glucose 97 09/10/23 09:30 Hemoglobin A1c 5.0 % (4.0-6.0) 09/10/23 09:30 Calculated Osmolality 292 mOsm/kg (285-295) 09/11/23 05:35 Calcium 8.7 mg/dL (8.5-10.5) 09/11/23 05:35 Total Bilirubin 0.6 mg/dL (0.15-1.2) 09/09/23 22:35 AST 11 U/L (0-32) 09/09/23 22:35 ALT 7 U/L (0-33) 09/09/23 22:35 Alkaline Phosphatase 89 U/L (35-105) 09/09/23 22:35 C-Reactive Protein 33.6 mg/L (0.0-4.9) H 09/10/23 09:30 Total Protein 7.0 g/dL (6.6-8.7) 09/09/23 22:35 Albumin 4.4 g/dL (3.5-5.2) 09/09/23 22:35 Globulin 2.6 g/dL (1.3-4.6) 09/09/23 22:35 Procalcitonin 0.18 ng/mL (0-0.5) 09/10/23 09:30 HCG, Qual Negative (Negative) 09/10/23 09:30 Urine Color Yellow (Yellow) 09/10/23 13:20 Urine Appearance Sl hazy (CLEAR) A 09/10/23 13:20 Urine pH 6 (5-7) 09/10/23 13:20 Ur Specific [place] 1.005 (1.005-1.030) 09/10/23 13:20 Urine Protein Neg (Negative) 09/10/23 13:20 Urine Glucose (UA) Norm (Normal) 09/10/23 13:20 Urine Ketones 1+ (Negative) H 09/10/23 13:20 Urine Blood 2+ (Negative) H 09/10/23 13:20 Urine Nitrate Negative (Negative) 09/10/23 13:20 Urine Bilirubin Neg (Negative) 09/10/23 13:20 Urine Urobilinogen Norm mg/dL (Negative) 09/10/23 13:20 Ur Leukocyte Esterase Trace (Negative) H 09/10/23 13:20 Urine RBC 0-4 /hpf (0-2) H 09/10/23 13:20 Urine WBC 15-25 /hpf (0-5) H 09/10/23 13:20 Ur Squamous Epith Cells 15-25 /hpf (0-5) H 09/10/23 13:20 Ur Transition Epith Cell Rare /hpf 09/10/23 13:20 Amorphous Sediment Not Reportable 09/10/23 13:20 Urine Bacteria Trace /hpf (NONE) 09/10/23 13:20 Urine Mucus None /hpf 09/10/23 13:20 Nasal Influ A H1 2009 PCR Not detected (NOT DETECT) 09/10/23 00:53 Urine Opiates Screen Negative ng/mL (Negative) 09/10/23 13:20 Ur Barbiturates Screen Negative ng/mL (Negative) 09/10/23 13:20 Ur Phencyclidine Scrn Negative ng/mL (Negative) 09/10/23 13:20 Ur Amphetamines Screen Negative ng/mL (Negative) 09/10/23 13:20 U Benzodiazepines Scrn Negative ng/mL (Negative) 09/10/23 13:20 Urine Cocaine Screen Positive ng/mL (Negative) H 09/10/23 13:20 U Marijuana (THC) Screen Negative ng/mL (Negative) 09/10/23 13:20 Adenovirus (PCR) Not detected (NOT DETECT) 09/10/23 00:53 C. pneumoniae DNA (PCR) Not detected (NOT DETECT) 09/10/23 00:53 Coronavirus 229E (PCR) Not detected (NOT DETECT) 09/10/23 00:53 Human Metapneumovir PCR Not detected (NOT DETECT) 09/10/23 00:53 Influenza A (H1) PCR Not detected (NOT DETECT) 09/10/23 00:53 Influenza A (H3) PCR Not detected (NOT DETECT) 09/10/23 00:53 Influenza Type A (PCR) Not detected (NOT DETECT) 09/10/23 00:53 Influenza Type B (PCR) Not detected (NOT DETECT) 09/10/23 00:53 M. pneumoniae (PCR) Not detected (NOT DETECT) 09/10/23 00:53 Parainfluenza 1 (PCR) Not detected (NOT DETECT) 09/10/23 00:53 Parainfluenza 2 (PCR) Not detected (NOT DETECT) 09/10/23 00:53 Parainfluenza 3 (PCR) Not detected (NOT DETECT) 09/10/23 00:53 Parainfluenza 4 (PCR) Not detected (NOT DETECT) 09/10/23 00:53 RSV Type A (PCR) Not detected (NOT DETECT) 09/10/23 00:53 RSV Type B (PCR) Not detected (NOT DETECT) 09/10/23 00:53 Entero/Rhino (PCR) Detected (NOT DETECT) A 09/10/23 00:53 SARS-CoV-2 (PCR) Not detected (NOT DETECT) 09/10/23 00:53 Vitals Last Vital Signs Temp 98.7 F 09/11/23 10:00 Pulse 111 H 09/11/23 11:31 Resp 18 09/11/23 11:31 BP 84/63 09/11/23 09:00 Pulse Ox 94 09/11/23 11:31 O2 Del Method Room Air 09/11/23 11:31 O2 Flow Rate 2 09/10/23 12:06 Discharge Plan Discharge Patient Disposition: Home Condition: Stable Prescriptions: New sulfamethoxazole-trimethoprim 800-160 mg Tablet 1 tab PO BID 5 Days Qty: 10 0RF benzonatate 100 mg Capsule 100 mg PO TID PRN (Reason: Cough) 7 Days Qty: 21 0RF prednisone 10 mg tablet 10 mg PO DIRECTED Qty: 53 0RF Rx Instructions: 4 tabs a day for 5 days, 3 tab for 5 days, 2 tab for 5days, 1 tab for 5days, 0.5 tab for 5days Continued budesonide-formoterol 160-4.5 mcg/actuation HFA aerosol inhaler 2 puff inhalation BID albuterol sulfate [ProAir HFA] 90 mcg/actuation HFA aerosol inhaler 2 puff inhalation Q6H PRN (Reason: shortness of breath or wheezing) 30 Days Qty: 8.5 2RF albuterol sulfate 2.5 mg /3 mL (0.083 %) solution for nebulization 2.5 mg inhalation Q4H PRN (Reason: shortness of breath or wheezing) Qty: 90 0RF Zyrtec 10 mg Capsule 10 mg PO DAILY Discharge Orders: Discharge Order (Routine); Ordered 09/11/23 Ordered By: Brad Woo Referrals: DatarEnder MD [Physician] - 1 week Discharge Diet: Cardiac Discharge Activity: Resume usual activity Patient Instructions: Opioid Safety, Pain Management Activity Restrictions/Additional Instructions: - Please monitor for worsening shortness of breath, wheezing, fevers, cough, ? Please take steroid taper as prescribed ? Please abstain from drug use Discharge Attestations Time Spent in Discharge Care*: greater than 30 min Quality Metrics Clinical Quality Measures [ No reported AMI, CVA or VTE this stay] Coding Level of Care Code 24707 Total time (in minutes) for Discharge: 45 Diagnoses Respiratory failure with hypoxia J96.91 Asthma exacerbation J45.901 Rhinovirus infection B34.8 Leukocytosis D72.829 Leukocytosis type: unspecified
== END 2023-09-11 13:20 | disposition home or self-care (01) | DRG 202 ==
LOC: ER 09-10 00:50 → ICU 09-10 02:47
PROVIDERS: Admitting Provider Internal Medicine; Emergency Provider Emergency Medicine; PCP Nurse Practitioner Family; Visit Provider Family Medicine
DX: J45.901 Unspecified asthma with (acute) exacerbation (principal); J96.91 Respiratory failure, unspecified with hypoxia; N39.0 Urinary tract infection, site not specified; B97.89 Other viral agents as the cause of diseases classified elsewhere; F14.90 Cocaine use, unspecified, uncomplicated; Z11.52 Encounter for screening for COVID-19; R00.0 Tachycardia, unspecified
CPT/HCPCS: 36415; 36600; 71045; 80048; 80051; 80053; 80306; 81001; 82330; 82805; 83036; 84145; 84703; 85025; 86140; 87040; 87070; 87086; 87205; 87486; 87581; 87633; 93005; 94640; 94664; 96372; 96374; 96376; 99285; C9113; J1644; J2930; J3475; J7030; J7614; J7644

== ENCOUNTER 2025-03-13 19:58 | Emergency (ER) | payer OTHER, SELFPAY ==
[2025-03-13 20:04] VITALS: BP 111/70; PULSE 99; RESP 16; TEMP 36.7; O2SAT 98; BMI 21.9
--- NOTE | 2025-03-13 20:10 | ED_ITS ---
HPI - Head Injury 2 General: Chief complaint: Head Injury Stated complaint: Head Injury Time Seen by Provider: 03/13/25 20:00 Source: patient Mode of arrival: ambulatory Limitations: no limitations History of Present Illness: Patient is a 25-year-old female presents to ED today with 2 separate concerns. Her main concern is that just prior to arrival, while walking up a flight of stairs, she accidentally tripped and struck her right frontal region on the ground. She does arrive with a hematoma here. No LOC. She has not had any vomiting. She does not complain of a headache. No neck pain. No visual changes. After examination, she requests that I perform a test stating she has taken multiple home test with faint lines and wants to know. She reports a missed period by a few days. She is not having any abdominal or pelvic pain. Complaint: head injury Onset (ago): minute(s) Mechanism of Injury: fall Place: home Loss of Consciousness: no Location of injury: frontal Severity: mild Radiation: none Other Injuries: none Associated symptoms: Reports no associated symptoms; Deny nausea, neck pain or vomiting Related Data Home Medications ?Medication ?Instructions ?Recorded ?Confirmed budesonide-formoterol HFA 160 2 puff inhalation BID 09/23/23 mcg-4.5 mcg/actuation aerosol inhaler cetirizine 10 mg capsule (Zyrtec) 10 mg PO DAILY 09/1009/23/23 Previous Rx's ?Medication ?Instructions ?Recorded albuterol sulfate 90 mcg/actuation 2 puff inhalation Q 6H PRN 11/06/21 aerosol inhaler (ProAir HFA) shortness of breath or wh eezing 30 days #8.5 grams albuterol sulfate 2.5 mg/3 mL 2.5 mg (3 mL) inhalation Q4H PRN 04/22/22 (0.083 %) solution for nebulization shortness of breat h or wheezing #90 mL Allergies Allergy/AdvReac Type Severity Reaction Status Date / Time Penicillins Allergy Intermediate rash Verified 09/23/23 11:51 morphine AdvReac Intermediate Muscle Uncoded 09/23/23 11:51 spasms Review of Systems 2 Const: Denies: fever(s), chills, body aches, fatigue or malaise Card: Denies: chest pain Resp: Denies: dyspnea GI: Denies: abdominal pain, nausea or vomiting : Denies: flank pain, dysuria, vaginal bleeding, vaginal discharge or pelvic pain Musc: Denies: neck pain, back pain, extremity pain or joint pain Neuro: Denies: headache(s) PFSH ED 2 PFSH: Medical History Asthma Social History Smoking and tobacco/nicotine status: never used tobacco/nicotine Physical Exam 2 Const: COMMON NORMALS: no acute distress, average body habitus, patient oriented x3, no limitations, healthy appearing, alert and well nourished G ENERAL APPEARANCE: cooperative ORIENTATION/CONSCIOUSNESS: Yes awake, Yes oriented to person, Yes oriented to place and Yes oriented to time HENMT: HEAD & SCALP: hematoma (R frontal) HEAD IMAGES: 1. hematoma FACE & SINUS: normal facial exam Eye: COMMON NORMALS: Equal, round and reactive pupils present and EOMs intact bilaterally GENERAL EYE: appearance normal, both eyes and all related structures and normal light reflex PUPIL: Yes Equal, round and reactive pupils present DIRECT OPHTHALMOSCOPY: Yes normal light reflex Neck/C-Spine: COMMON NORMALS: full ROM CERVICAL SPINE: Yes cervical ROM normal and No Cervical spine tenderness GI: COMMON NORMALS: Normal to inspection, nondistended, normoactive bowel sounds present, Soft to palpation, non-tender and no masses PALPATION: Yes Soft to palpation : COMMON NORMALS: Yes no CVA tenderness BLADDER/KIDNEY EXAM: Yes no CVA tenderness Back/Pelvis: COMMON NORMALS: no CVA tenderness, thoracic and lumbar spine normal to inspection and no thoracic nor lumbar tenderness Extremity: GENERAL: Yes normal exam except as noted Neuro: LORA COMA SCALE: document GCS findings Lora coma scale eye opening: Spontaneous [place] coma scale verbal response: Orientated Lora coma scale motor response: Obey commands [place] coma scale total score: 15 COMMON NORMALS: patient oriented x3, CN's II-XII intact bilaterally, moves all extremities, no focal motor deficits, no sensory deficits noted and gait normal SENSORIUM/ORIENTATION: Yes alert, Yes oriented to person, Yes oriented to place and Yes oriented to time Skin: TRAUMA: other (R frontal hematoma) Course 2 Vital Signs: Vital signs: Vital Signs Temperature 98.0 F 03/13/25 20:04 Pulse Rate 99 03/13/25 20:04 Respiratory Rate 16 03/13/25 20:04 Blood Pressure 111/70 03/13/25 20:04 Pulse Oximetry 98 03/13/25 20:04 Oxygen Delivery Me thod Room Air 03/13/25 20:04 MDM - Head Injury Medcial Decision Making Patient here for right frontal hematoma following a fall on the stairs. She is not having any red flag symptoms that make me believe she needs emergent CT imaging at this time. She is requesting test. This was negative. She is not having any abdominal or pelvic pain. She will be allowed discharge. Return precautions discussed. Differential Diagnosis Likely concussion without loss of consciousness and closed head injury Medical Records I reviewed the patient's medical records. Lab Data I reviewed the patient's lab results. Laboratory Results HCG, Qual Negative (Negative) 03/13/25 20:49 No radiology studies performed this visit Discharge Plan Discharge Patient Disposition: Home Clinical Impression: Negative test Hematoma of frontal scalp Qualifiers: Encounter type: initial encounter Qualified Code(s): S00.03XA - Contusion of scalp, initial encounter Fall on stairs Qualifiers: Encounter type: initial encounter Qualified Code(s): W10.9XXA - Fall (on) (from) unspecified stairs and steps, initial encounter Condition: Stable Prescriptions: No Action budesonide-formoterol 160-4.5 mcg/actuation HFA aerosol inhaler 2 puff inhalation BID albuterol sulfate [ProAir HFA] 90 mcg/actuation HFA aerosol inhaler 2 puff inhalation Q6H PRN (Reason: shortness of breath or wheezing) 30 Days Qty: 8.5 2RF albuterol sulfate 2.5 mg /3 mL (0.083 %) solution for nebulization 2.5 mg inhalation Q4H PRN (Reason: shortness of breath or wheezing) Qty: 90 0RF Zyrtec 10 mg Capsule 10 mg PO DAILY Discharge Orders: Discharge ED (Routine); Ordered 03/13/25 Ordered By: Octavia Jorgensen Referrals: Renee Daily NP [Primary Care Provider, Nurse Practitioner] Patient Instructions: Head Injury (DC) Activity Restrictions/Additional Instructions: You may return to the emergency department for onset of severe headache, repetitive episodes of vomiting, visual changes, trouble walking, altered mental status, or any other concerns you may have. Print Language: South Korean Coding Level of Care Code ED Community Engagement Coordinator for Carolina Loyd
[2025-03-13 21:00] LABS: HCG Qualitative Urine. Negative (Negative)
== END 2025-03-13 21:07 | disposition home or self-care (01) ==
PROVIDERS: Emergency Provider Physician Assistant; PCP Nurse Practitioner Family
DX: S00.03XA Contusion of scalp, initial encounter (principal); W10.9XXA Fall (on) (from) unspecified stairs and steps, initial encounter
CPT/HCPCS: 81025; 99283